=== PATIENT | male | born 1940 | race Caucasian/White ===

== ENCOUNTER 2017-02-05 12:42 | Emergency (ER) | payer MEDICARE, MEDICAID ==
[2017-02-05 13:10] VITALS: RESP 18; TEMP 98.1
[2017-02-05] MEDS ORDERED: Albuterol-Ipratrop 3 mg / 0.5 (3 ml) UD INH STA ×2 (13:46→15:14)
[2017-02-05] MEDS ORDERED: Albuterol-Ipratrop 3 mg / 0.5 (3 ml) UD ONE (14:20)
--- NOTE | 2017-02-05 14:23 | C.PDOC ---
History Of Present Illness 76 y/o male presents to ED for evaluation of cough, congestion and tactile fever for the last 4 days. Pt notes cough is productive with associated yellow sputum. (+)shortness of breath. Otherwise, denies any n/v/d, abdominal pain, or chest pain. No recent travel, or sick contact. Time Seen by Provider: 02/05/17 13:41 Chief Complaint (Nursing): Cough, Cold, Congestion History Per: Patient History/Exam Limitations: no limitations Onset/Duration Of Symptoms: Days (4) Current Symptoms Are (Timing): Still Present Location Of Pain: None Sick Contacts (Context): None Associated Symptoms: Fever, Cough, Sputum, Nasal Congestion. denies: Sore Throat, Neck Pain, Sinus Drainage, Myalgias, Nausea, Vomiting, Diarrhea Ear Symptoms: Bilateral: None Recent travel outside of the [place]: No Additional History Per: Patient Past Medical History Reviewed: Historical Data, Nursing Documentation, Vital Signs Vital Signs: Last Vital Signs Temp 98.1 F 02/05/17 13:10 Pulse 65 02/05/17 17:12 Resp 18 02/05/17 17:12 BP 119/57 L 02/05/17 17:12 Pulse Ox 95 02/05/17 17:58 - Medical History PMH: Hypercholesterolemia, Rheumatoid Arthritis - [facility] Procedures TU BLADDER CLEARANCE (07/22/13) TU DESTRUC BLADD LES NEC (07/22/13) Family History: States: Unknown Family Hx - Social History Hx Tobacco Use: Yes (smokes 2 cigarettes a day) Hx Alcohol Use: No Hx Substance Use: No - Immunization History Hx Tetanus Toxoid Vaccination: Yes Hx Influenza Vaccination: Yes Hx Pneumococcal Vaccination: Yes Review Of Systems Except As Marked, All Systems Reviewed And Found Negative. Constitutional: Positive for: Fever ENT: Positive for: Nose Congestion. Negative for: Ear Pain, Nose Discharge, Throat Pain Cardiovascular: Negative for: Chest Pain, Palpitations, Edema, Light Headedness Respiratory: Positive for: Cough, Shortness of Breath, Sputum. Negative for: Hemoptysis Gastrointestinal: Negative for: Nausea, Vomiting, Abdominal Pain, Diarrhea Skin: Negative for: Rash, Bruising Neurological: Negative for: Headache, Dizziness Physical Exam - Physical Exam Appears: Non-toxic, No Acute Distress Skin: Normal Color, Warm, Dry Head: Atraumatic, Normacephalic Eye(s): bilateral: Normal Inspection, PERRL, EOMI Nose: Normal Oral Mucosa: Moist Neck: Normal ROM, Supple Chest: Symmetrical, No Tenderness Cardiovascular: Rhythm Regular, No Murmur Respiratory: Decreased Breath Sounds (bilateral), No Rales, No Rhonchi, No Wheezing Gastrointestinal/Abdominal: Soft, No Tenderness Back: No CVA Tenderness Extremity: Normal ROM, No Pedal Edema, Capillary Refill (<2 sec.), No Deformity Pulses: Left Dorsalis Pedis: Normal, Right Dorsalis Pedis: Normal Neurological/Psych: Oriented x3, Normal Speech, Normal Cognition ED Course And Treatment - Laboratory Results Result Diagrams: 02/05/17 14:27 02/05/17 14:27 ECG: Interpreted By Me, Viewed By Me ECG Rhythm: Sinus Bradycardia ECG Interpretation: Normal Interpretation Of ECG: Normal intervals. No ST wave abnormalities. Rate From EC (bpm) O2 Sat by Pulse Oximetry: 95 (RA) Pulse Ox Interpretation: Normal - Other Rad CXR X-Ray: Viewed By Me, Read By Radiologist Interpretation: IMPRESSION: COPD/emphysema. 7 mm nodular density at the right lung base overlying the right anterior rib, possibly related to the osseous structure versus superimposed nodule. Medical Decision Making Medical Decision Making: Initial Impression:bronchitis Blood work, CXR, EKG ordered and reviewed. Patient was given Tylenol PO and Albuterol treatment. Patient is being discharged home with instructions to follow up with PMD in 1-2 days, or to return to ED if symptoms worsen. Patient improved, o2 sats 98 percent on room air, will tx as outpatient and discharged home. Disposition Counseled Patient/Family Regarding: Studies Performed, Diagnosis, Need For Followup, Rx Given, Smoking Cessation - Disposition Referrals: Morales Das MD [Medical Doctor] - Disposition: HOME/ ROUTINE Disposition Time: 17:48 Condition: IMPROVED Additional Instructions: follow up with your doctor in 2 days call to make an appointment take medications as prescribed return to hospital if symptoms worsens or progress Prescriptions: Albuterol HFA [Ventolin HFA 90 mcg/actuation (8 g)] 2 puff IH [id number] #1 puff Azithromycin [Zithromax] 250 mg PO DAILY #4 tab Hydrocodone/Chlorpheniramine [Tussionex] 5 ml PO Q12 #60 ml Prednisone 50 mg PO DAILY #4 tab Forms: Gen Discharge Inst [place], [facility] ([place]) - Clinical Impression Clinical Impression: Bronchitis
--- NOTE | 2017-02-05 14:26 | RAD ---
HISTORY: SOB COMPARISON: Chest x-ray performed 07/22/15 TECHNIQUE: Chest PA and lateral FINDINGS: LUNGS: Hyperinflation may be seen in setting of COPD. Increased lucencies especially within the bilateral upper lung yarbrough compatible with underlying emphysema. No focal consolidation. 7 mm nodular density at the right lung base overlying the right anterior rib, possibly related to the osseous structure versus superimposed nodule. PLEURA: No significant pleural effusion identified. No definite pneumothorax . CARDIOVASCULAR: Heart size appears within normal limits. Ectatic aorta. OSSEOUS STRUCTURES: Degenerative changes including confluent anterior osteophyte formation. VISUALIZED UPPER ABDOMEN: Elevation of the right hemidiaphragm. OTHER FINDINGS: None. IMPRESSION: COPD/emphysema. 7 mm nodular density at the right lung base overlying the right anterior rib, possibly related to the osseous structure versus superimposed nodule.
[2017-02-05 14:31] LABS: BASO % 0.3 % (0.0-2.0); EOS # 0.2 K/uL (0.0-0.7); EOS % 3.2 % (0.0-4.0); HEMATOCRIT 39.3 % (35.0-51.0); LYMPH # 1.5 K/uL (1.0-4.3); LYMPH % 27.4 % (20.0-40.0); MEAN CELL VOLUME 93.2 fL (80.0-94.0); MEAN CORPUSCULAR HEMOGLOBIN 31.5 pg (27.0-31.0); MEAN CORPUSCULAR HGB CONC 33.8 g/dL (33.0-37.0); MEAN PLATELET VOLUME 7.9 fL (7.2-11.7); MONO # 0.6 K/uL (0.0-0.8); MONO % 11.9 % (0.0-10.0); NRBC % 0.1 % (0.0-2.0); RED CELL DISTRIBUTION WIDTH 13.6 % (11.5-14.5); WHITE BLOOD COUNT 5.4 K/uL (4.8-10.8)
[2017-02-05 14:39] LABS: CHLORIDE 103 mmol/L (98-107); POTASSIUM 4.3 mmol/L (3.6-5.2); SODIUM 139 mmol/L (132-148)
[2017-02-05 14:42] LABS: ALB/GLOB RATIO 1.1 (1.0-2.1); ALKALINE PHOSPHATASE 57 U/L (38-126); ALT/SGPT 37 U/L (21-72); AST/SGOT 29 U/L (17-59); BILIRUBIN,TOTAL 0.4 mg/dL (0.2-1.3); BLOOD UREA NITROGEN 17 mg/dL (9-20); CARBON DIOXIDE 25 mmol/L (22-30); GFR AFRICAN-AMERICAN > 60; GLUCOSE,RANDOM 90 mg/dL (75-110); TOTAL PROTEIN 7.4 g/dL (6.3-8.3)
[2017-02-05 14:43] LABS: CALCIUM 8.9 mg/dl (8.6-10.4)
[2017-02-05] MEDS ORDERED: Azithromycin 500mg/250ML NS 500 MG/250 ML BAG IVPB STA (15:15)
[2017-02-05] MEDS ORDERED: cefTRIAXone IV 1 gm in Dextros 50 ML IVPB ONE (15:45)
[2017-02-05] MEDS ORDERED: Azithromycin 500mg/250ML NS 500 MG/250 ML BAG IVPB ONE (16:13)
[2017-02-05 17:12] VITALS: BP 119/57; PULSE 65
[2017-02-05 17:52] VITALS: O2SAT 95
--- NOTE | 2017-02-06 15:33 | CARD ---
APPROVED REPORT EKG Measurement Heart [id number] [id number] <Conclusion> Sinus bradycardia Otherwise normal ECG
== END 2017-02-05 18:22 | disposition home or self-care (01) ==
LOC: C.ER 12:42
DX: J40 Bronchitis, not specified as acute or chronic (principal); F17.210 Nicotine dependence, cigarettes, uncomplicated
CPT/HCPCS: 71020; 80053; 83880; 84484; 85025; 87040; 93005; 94640; 96374; 96375; 99284; J0456; J0696; J2930